=== PATIENT | male | born 1980 | race African-American/Black ===

== ENCOUNTER 2017-09-05 03:03 | Observation (INO) | payer SELFPAY ==
[2017-09-05 06:21] LABS: Troponin I Less than 0.010 ng/mL (< 0.028)
[2017-09-05] MEDS ORDERED: Ondansetron ODT 4 MG TAB SL PRN (07:55)
[2017-09-05] MEDS ORDERED: Ondansetron HCl/PF 4 MG/2 ML Vial IVP PRN (07:55)
[2017-09-05] MEDS ORDERED: Lactated Ringer's 1,000 ML IV SCH (08:00)
[2017-09-05 08:28] VITALS: BMI 30.7
--- NOTE | 2017-09-05 08:47 | RAD ---
LEFT SHOULDER: Three views. HISTORY: Shoulder pain. FINDINGS: Degenerative changes of the shoulder are noted with mild spurring from the humeral head. AC joint is normally aligned. No fracture or dislocation. IMPRESSION: Evidence of mild degenerative changes to the left shoulder. No acute process identified. POS: [facility]
--- NOTE | 2017-09-05 08:48 | RAD ---
PORTABLE CHEST: HISTORY: Cough. COMPARISON: 06/05/16. FINDINGS: Lungs are clear. No infiltrate seen. Heart and mediastinum unremarkable. IMPRESSION: No acute process. POS: [facility]
[2017-09-05] MEDS ORDERED: Senokot 8.6 MG TAB PO PRN (10:47)
[2017-09-05] MEDS ORDERED: Acetaminophen 325 MG TAB PO PRN (10:47)
--- NOTE | 2017-09-05 16:25 | HP ---
REASON FOR ADMISSION: Rhabdomyolysis, substance abuse. HISTORY OF PRESENTING ILLNESS: Patient was initially taken to [facility] ER after he was found in the middle of the road yesterday night. He has known history of PCP abuse and his urine drug screen was positive as well. He was initially nonverbal, occasionally responding with short verbal responses. His lab work revealed CK levels of 3769. Patient also had mild metabolic acidosis with serum bicarbonate of 17. In view of this, patient was transferred here and placed under observation. Currently, he is awake this morning and is fully oriented. He has no complaints of chest pain, palpitation, PND or orthopnea. He has left shoulder pain, which is chronic per patient. 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 He has had right forearm both bone fracture as a child. No other medical condition. MEDICATIONS: Takes Motrin on a p.r.n. basis. ALLERGIES: No known drug allergies. PERSONAL HISTORY: Smokes one pack a day. Drinks 3 beers on a daily basis. Abuses marijuana and phencyclidine from 2011. FAMILY HISTORY: Mother has diabetes. Father is apparently healthy as far as he knows. REVIEW OF SYSTEMS: The following complete review of systems was negative, unless otherwise mentioned in the HPI or below: CONSTITUTIONAL: Weight loss or gain, ability to conduct usual activities. SKIN: Rash, itching. EYES: Double vision, pain. ENT/MOUTH: Nose bleeding, neck stiffness, pain, tenderness. CARDIOVASCULAR: Palpitations, dyspnea on exertion, orthopnea. RESPIRATORY: Shortness of breath, wheezing, cough, hemoptysis, fever or night sweats. GASTROINTESTINAL: Poor appetite, abdominal pain, heartburn, nausea, vomiting, constipation, or diarrhea. GENITOURINARY: Urgency, frequency, dysuria, nocturia. MUSCULOSKELETAL: Pain, swelling. NEUROLOGIC/PSYCHIATRIC: Anxiety, depression. ALLERGY/IMMUNOLOGIC: Skin rash, bleeding tendency. PHYSICAL EXAMINATION: GENERAL: The patient is a 37-year-old male, who is currently not in any acute distress. He is currently ambulating in the room. VITAL SIGNS: Blood pressure 134/76, pulse 58 per minute, respiratory rate 18 per minute, temperature 97.9 degrees Fahrenheit, saturating 99% on room air. NECK: Supple, no elevated JVD. HEENT: Eyes: Extraocular muscles intact. Pupils reacting to light. Oral cavity, mucous membranes are moist. No exudates or congestion. CARDIOVASCULAR: S1, S2 heard. Regular rhythm. RESPIRATORY: Air entry 2+ bilateral. No rales or rhonchi. ABDOMEN: Soft, bowel sounds heard. No tenderness, rigidity or guarding. EXTREMITIES: No peripheral edema or calf tenderness. VASCULAR SYSTEM: Peripheral pulses 1+ bilateral. No ischemic ulcerations or gangrene. CENTRAL NERVOUS SYSTEM: No gross focal deficits seen. Patient is currently awake and oriented well. PSYCHIATRIC SYSTEM: The patient's mood is euthymic. No hallucinations or delusions. No obvious hallucinations were seen at present. LABORATORY AND X-RAY FINDINGS: White count is 7, H&H 15 and 45, platelet count 191, MCV is 88 with 49% neutrophils. Serum bicarbonate is 17, BUN 18, creatinine 1.1. Serum glucose 127. AST 123, ALT 58, total bilirubin 0.2, CK level is 3769. A repeat number this morning was [id number]. Troponin I is less than 0.01. Urine drug screen is positive for phencyclidine and cannabis. Chest x- ray, no acute cardiopulmonary abnormalities. Left shoulder x-ray done, shows mild degenerative changes in the left shoulder, otherwise no acute process was identified. EKG done shows normal sinus rhythm at 66 beats per minute. There are signs of mild LVH. CLINICAL IMPRESSION AND PLAN: The patient will be under observation on telemetry for rhabdomyolysis due to substance abuse, specifically phencyclidine. He has been abusing this from 2011 along with alcohol and tobacco abuse as well. He was counseled with regards to cessation of all three. He is getting hydrated. His urine is clear at present. We will obtain CK levels around 3:00 p.m. and if the CK levels are trending down, he will be shortly discharged home. He is otherwise hemodynamically stable at present. [facility]
[2017-09-05] MEDS: Sodium Chloride 0.9% 1,000 ML IV SCH (17:25)
[2017-09-05] MEDS: Famotidine 20 MG TAB PO SCH (19:29)
[2017-09-06] MEDS: Sodium Chloride 0.9% 1,000 ML IV SCH ×2 (03:47)
[2017-09-06 05:07] LABS: Anion Gap 9 mmol/L (10-20); BUN (Urea Nitrogen) 9 mg/dL (8.9-20.6); CK (CPK) 1495 U/L (30-200); Calc. Creatinine Clearance 159 mL/min (70-130); Carbon Dioxide 26 mmol/L (22-29); Chloride 107 mmol/L (98-107); Estimated GFR-MDRD Greater than 90
[2017-09-06 05:09] LABS: #Eosinphils 0.2 thou/uL (0.0-0.7); #Monocytes 0.6 thou/uL (0.11-0.59); #Neutrophils 3.4 thou/uL (1.40-6.50); %Basophils 0.3 % (0.0-1.0); %Eosinophils 3.9 % (0.0-10.0); %Lymphocytes 32.5 % (21.0-51.0); %Monocytes 8.9 % (0.0-10.0); Hematocrit 42.4 % (42.0-52.0); Mean Platelet Volume 10.6 fL (7.4-10.4); Red Blood Cell (RBC) Count 4.57 mill/uL (4.70-6.10); White Blood Cell (WBC) Count 6.3 thou/uL (4.8-10.8)
[2017-09-06 08:46] VITALS: BP 125/78; TEMP 97.3
[2017-09-06] MEDS: Famotidine 20 MG TAB PO SCH (08:56)
[2017-09-06] MEDS ORDERED: Enoxaparin Sodium 40 MG/0.4 ML SYRINGE SC SCH (09:00)
--- NOTE | 2017-09-06 11:12 | PDOC.PN ---
- Subjective Encounter Start Date: 09/06/17 Encounter Start Time: 08:00 Subjective: sitting in chair, no complaints -: feels good - Objective Resuscitation Status: Resuscitation Status FULL:Full Resuscitation MAR Reviewed: Yes Vital Signs & Weight: Vital Signs (12 hours) Temp Pulse Resp BP BP Pulse Ox 09/06/17 08:15 97.3 F L 59 L 20 09/06/17 08:00 97.3 F L 59 L 20 125/78 97 09/06/17 03:47 98.4 F 64 16 138/98 H 98 09/06/17 00:02 97.8 F 58 L 16 132/79 97 Weight Weight 220 lb I&O: 09/05/17 09/06/17 09/07/17 06:59 06:59 06:59 Intake Total 4108 326 Output Total 2250 Balance 1858 326 Result Diagrams: 09/06/17 04:22 09/06/17 04:22 Phys Exam - Physical Examination HEENT: PERRLA, moist MMs Neck: no JVD, supple Respiratory: no wheezing, no rales Cardiovascular: RRR, no significant murmur Gastrointestinal: soft, non-tender, positive bowel sounds Musculoskeletal: no edema, pulses present Neurological: non-focal, moves all 4 limbs Psychiatric: A&O x 3 Dx/Plan (1) Rhabdomyolysis Code(s): M62.82 - RHABDOMYOLYSIS Status: Acute (2) Substance abuse Code(s): F19.10 - OTHER PSYCHOACTIVE SUBSTANCE ABUSE, UNCOMPLICATED Status: Chronic (3) Tobacco abuse Code(s): Z72.0 - TOBACCO USE Status: Chronic - Plan hemostable -: ck levels are 1495 -: adv to drink 3 liters of free water -: dc pt home * .
--- NOTE | 2017-09-06 19:00 | DIS ---
DATE OF ADMISSION: 09/05/2017 DATE OF DISCHARGE: 09/06/2017 DISCHARGE DISPOSITION: To home. PRIMARY DISCHARGE DIAGNOSES: Rhabdomyolysis, resolving and substance abuse including chronic PCP and marijuana abuse, tobacco abuse. PROCEDURES DONE DURING HOSPITALIZATION: The patient has had left shoulder x-ray done which showed mi ld degenerative changes, otherwise no acute process was seen. CK levels were low on admission was 37 69. Discharge numbers of 1495. Discharge BUN and creatinine is 9 and 0.8. DISCHARGE MEDICATIONS: None. DISCHARGE PLAN: Patient to follow up with primary care physician in 1 week. BRIEF COURSE DURING HOSPITALIZATION: The patient initially got admitted after [place] at midnight prior to hospitalization. He was found to have had elevated CK levels with urine drug screen positive for PCP and marijuana. He also had mild metabolic acidosis as well. His CK levels were 3769. He was gently hydrated during his stay here. Twenty four hours into hospitaliz ation, the patient's mentation was back to his baseline. He was counseled with regards to PCP and ma rijuana abuse. He was also counseled regarding tobacco abuse. He was gently hydrated during his sta y and his CK levels are trending down. The patient is ambulating with no muscle aches. He needs fol low up with his primary care physician in 1 week. He has been advised to drink at least 3 liters of free water. Please see a face to face documentation on [facility] for the day of discharge.
--- NOTE | 2017-09-19 11:18 | EKG ---
Test Reason : Blood Pressure : / mmHG Vent. Rate : 066 BPM Atrial Rate : 066 BPM P-R Int : 154 ms QRS Dur : 092 ms QT Int : 408 ms P-R-T Axes : 044 038 029 degrees QTc Int : 427 ms Normal sinus rhythm with sinus arrhythmia Normal ECG Confirmed by TD ORTIZ M.D. ([id number]), editor book JORGE ALBERTO MUÑIZ ([id number]) on 09/19/2017 11:18:13 AM Referred By: Confirmed By:TD ORTIZ M.D.
== END 2017-09-06 10:47 | disposition home or self-care (01) ==
LOC: ERS 03:03 → 2SW 07:17
PROVIDERS: ADMIT Internal Medicine; ATTEND Internal Medicine
DX: M62.82 Rhabdomyolysis (principal); B59 Pneumocystosis; F12.10 Cannabis abuse, uncomplicated; F17.210 Nicotine dependence, cigarettes, uncomplicated; Z86.73 Personal history of transient ischemic attack (TIA), and cerebral infarction without residual deficits; Z83.3 Family history of diabetes mellitus
CPT/HCPCS: 36415; 71010; 80048; 82550; 82553; 84484; 85025; 93005; 94640; 96360; 96361; G0378; J1650; J7620